=== PATIENT | female | born 1940 | race Asian ===

== ENCOUNTER 2019-12-04 08:58 | Day surgery (SDC) | payer OTHER, SELFPAY ==
[~2019-12-04] VITALS: Ht 152.4 cm; Wt 61.2 kg
[2019-12-04] MEDS ORDERED: fentaNYL citrate 0.05 MG/ML VIAL ONE (11:33)
[2019-12-04] MEDS ORDERED: MIDAZOLAM 2 MG/2 ML VIAL ONE (11:33)
[2019-12-04] MEDS ORDERED: MIDAZOLAM 2 MG/2 ML VIAL IVP ONE (14:05)
[2019-12-04] MEDS ORDERED: fentaNYL citrate 0.05 MG/ML VIAL IVP ONE (14:05)
== END 2019-12-04 12:40 | disposition home or self-care (01) ==
LOC: MDS 08:58 → MMU 09:16 → MDS 12:40
PROVIDERS: ATTEND Internal Medicine Gastroenterology
DX: R13.10 Dysphagia, unspecified (principal); K31.9 Disease of stomach and duodenum, unspecified; E11.9 Type 2 diabetes mellitus without complications; I10 Essential (primary) hypertension; Z79.899 Other long term (current) drug therapy; Z79.82 Long term (current) use of aspirin; Z79.84 Long term (current) use of oral hypoglycemic drugs; E78.00 Pure hypercholesterolemia, unspecified; Z90.49 Acquired absence of other specified parts of digestive tract; Z90.710 Acquired absence of both cervix and uterus; Z20.828 Contact with and (suspected) exposure to other viral communicable diseases
CPT/HCPCS: 43239; 88305; 88312; 88313; J2250; J3010; U0003